=== PATIENT | female | born 1995 | race Hispanic/Latino ===

== ENCOUNTER 2019-10-24 18:42 | Emergency (ER) | payer OTHER, BC ==
[~2019-10-24] VITALS: Ht 165.1 cm; Wt 93.9 kg
[2019-10-24] MEDS ORDERED: AUGMENTIN 875-1 EACH PO (21:22)
== END 2019-10-24 21:33 | disposition home or self-care (01) ==
LOC: ED 18:42
DX: J32.9 Chronic sinusitis, unspecified (principal)
CPT/HCPCS: 70450; 80053; 85025; 96374; 96375; 99284-25; J1200; J1885; J2765; J7030

== ENCOUNTER 2020-08-02 00:10 | Inpatient (IN) | payer BC, OTHER ==
[~2020-08-02 00:10] MED LIST: AUGMENTIN 875-1 EACH PO
[2020-08-02] MEDS ORDERED: VITAFOL-OB+DHA1 EACH PO (01:01)
--- NOTE | 2020-08-02 01:17 | NUR ---
[facility] RAPID COVID TEST DONE PER DR ORDER. COVID TEST COLLECTED FROM BOTH NARES W\O ISSUE. PT TOLERATED WELL.
== END 2020-08-03 12:43 | disposition home or self-care (01) | DRG 807 ==
LOC: FBC 00:10
PROVIDERS: ADMIT Obstetrics & Gynecology; ATTEND Obstetrics & Gynecology
PROC: 10E0XZZ Delivery of Products of Conception, External Approach (ICD-10-PCS; principal; 2020-08-02)
PROC: 10907ZC Drainage of Amniotic Fluid, Therapeutic from Products of Conception, Via Natural or Artificial Opening (ICD-10-PCS; 2020-08-02)
PROC: 3E0P7VZ Introduction of Hormone into Female Reproductive, Via Natural or Artificial Opening (ICD-10-PCS; 2020-08-02)
PROC: 00HU33Z Insertion of Infusion Device into Spinal Canal, Percutaneous Approach (ICD-10-PCS; 2020-08-02)
PROC: 3E0R3BZ Introduction of Anesthetic Agent into Spinal Canal, Percutaneous Approach (ICD-10-PCS; 2020-08-02)
DX: O48.0 Post-term pregnancy (principal); Z37.0 Single live birth; Z3A.40 40 weeks gestation of pregnancy; Z20.822 Contact with and (suspected) exposure to COVID-19; O76 Abnormality in fetal heart rate and rhythm complicating labor and delivery; O99.824 Streptococcus B carrier state complicating childbirth; O99.02 Anemia complicating childbirth; D64.9 Anemia, unspecified
CPT/HCPCS: 36415; 85027; C9803; J2540; J2590; J2795; J3010; J7121; U0003

== ENCOUNTER 2020-11-11 06:00 | Day surgery (SDC) | payer BC, OTHER ==
[~2020-11-11] VITALS: Ht 165.1 cm; Wt 101.0 kg
[~2020-11-11 06:00] MED LIST changes: +VITAFOL-OB+DHA1 EACH PO
--- NOTE | 2020-11-11 09:31 | NUR ---
11/11/20 0931 Ruthann Gonzalez 0917 PT ARRIVED TO PACU ON RA, O2 SAT 88% 2L NC PLANCED AND O2 INCREASED TO 94%. RESP EVEN AND UNLABORED, PT STARTING TO MOVE AROUND IN BED AND SHAKING, WARM AIRWAY PLACED. VSS.
--- NOTE | 2020-11-16 03:44 | OR ---
[facility] [address], [place] [address] Signed DATE OF OPERATION: 11/11/2020 SURGEON: Robi Sow DO PROCEDURE: Excision of vaginal cyst. MOLD RELEASE WORKER: None. ESTIMATED BLOOD LOSS: 5 mL. ANESTHESIA: Monitored anesthesia care. FINDINGS: A 2 cm serous appearing vaginal cyst from 10 o'clock position, 1 cm vaginal cyst just proximal to 2 cm cyst with smaller but otherwise identical appearance, and similar 2 cm cyst in the 2 o'clock position well localized without extension. DESCRIPTION OF PROCEDURE: The patient was taken to the operating room, where she was placed under monitored anesthesia care in dorsal lithotomy position and prepped and draped in the normal sterile fashion. Weighted speculum was placed in the vagina allowing excellent visualization of the first most distal cyst. A 3 mm incision was made with scalpel and extended with Welch scissors. The cyst was excised through blunt and sharp dissection using Metzenbaum scissors and excised in one intact cyst and sent to Pathology. A second much smaller cyst was noted just deep to same opening and in the same manner that was bluntly and sharply dissected using Metzenbaum scissors. Just prior to complete excision, the cyst wall ruptured, spilling a small amount of clear serous fluid. Cyst wall was sent with the initial cyst for Pathology. The incision was closed with 3-0 chromic in a running fashion. Attention was then turned to the deeper cyst in the 2 o'clock position. In a similar manner, incision was made with a scalpel and the cyst wall was dissected out bluntly and sharply with Metzenbaum scissors. [place] through the dissection, cyst wall ruptured, spilling similar clear serous contents. Remainder of the cyst wall was excised and incision was closed with Electronically Signed By: ROBI SOW DO 11/16/20 0344 PATIENT NAME: ASHLEY WHITTAKERINA OPERATIVE REPORT DATE OF : [birth year] REPORT #: [id number] PHYSICIAN: ROBI SOW DO PCP: NO PRIMARY CARE PHYSICIAN REPORT IS CONFIDENTIAL AND NOT TO BE RELEASED WITHOUT AUTHORIZATION [facility] [address] [place] [id number] Signed 3-0 chromic in a running fashion. Blood loss was minimal. Excellent hemostasis was noted. Following closure, the patient was taken to recovery room in stable and satisfactory condition. Robi Sow DO EMZ/MODL /[id number] Copies: ~ Electronically Signed By: ROBI SOW DO 11/16/20 0344 PATIENT NAME: CARLEEN WHITTAKER OPERATIVE REPORT DATE OF : [birth year] REPORT #: [id number] PHYSICIAN: ROBI SOW DO PCP: NO PRIMARY CARE PHYSICIAN REPORT IS CONFIDENTIAL AND NOT TO BE RELEASED WITHOUT AUTHORIZATION
--- NOTE | 2020-11-19 09:23 | PATH ---
[facility] [address] [facility] [place], [place] [address] Signed SPECIMEN(S): A VAGINAL CYSTS X3 SPECIMEN SOURCE: A. VAGINAL CYSTS X3 CLINICAL HISTORY: Vaginal cysts / mass FINAL PATHOLOGIC DIAGNOSIS: Vaginal cysts x 3: - Benign cyst lined by low cuboidal epithelium. - See Comment. COMMENT: Features most consistent with a Bartholin's cyst are present. TWK:everardo:[email or web address] MICROSCOPIC EXAMINATION: Histologic sections of all submitted blocks are examined by light microscopy. These findings, together with the gross examination, support the pathologic diagnosis. GROSS DESCRIPTION: The specimen, labeled "CG," and designated on the requisition "vaginal cyst 3," is received in formalin and consists of three ritchie-pink membranous tissue fragments, including one intact serous cyst, measuring 2.9 x 2.0 x 1.5 cm in aggregate. The Intact cyst contains clear fluid and business center representative sections are submitted in cassette A1. AT (under the direct supervision of a pathologist) The Gross Description was prepared using a voice recognition system. The report was reviewed for accuracy; however, sound-alike word errors, addition and/or deletions may occur. If there is any question about this report, please contact Client Services. PERFORMING LABORATORY: The technical component was performed by [facility], [address] [place] [id number] (Language Therapist: Chey Emery MD; CLIA# [id number]). The professional interpretation was performed by [facility], [facility], [address] [place] [address]. PATIENT NAME: CARLEEN WHITTAKER PATHOLOGY DATE OF : [birth year] REPORT #: [id number] PHYSICIAN: TAB PATHOLOGY PCP: NO PRIMARY CARE PHYSICIAN REPORT IS CONFIDENTIAL AND NOT TO BE RELEASED WITHOUT AUTHORIZATION [address] [place], [place] [address] Signed Diagnostician: Wilver Granados MD Pathologist Electronically Signed 11/19/2020 Copies: ~ PATIENT NAME: CARLEEN WHITTAKER PATHOLOGY DATE OF : [birth year] REPORT #: [id number] PHYSICIAN: TAB PATHOLOGY PCP: NO PRIMARY CARE PHYSICIAN REPORT IS CONFIDENTIAL AND NOT TO BE RELEASED WITHOUT AUTHORIZATION
== END 2020-11-11 10:25 | disposition home or self-care (01) ==
LOC: DS 06:00 → OPS 06:00 → DS 09:00 → OPS 09:00
PROVIDERS: ATTEND Obstetrics & Gynecology
PROC: 0UBG7ZZ Excision of Vagina, Via Natural or Artificial Opening (ICD-10-PCS; principal; 2020-11-11 06:45)
DX: N89.8 Other specified noninflammatory disorders of vagina (principal); Z30.431 Encounter for routine checking of intrauterine contraceptive device
CPT/HCPCS: 00948; J1885; J2001; J2250; J2405; J2704; J7121

== ENCOUNTER 2023-10-08 10:53 | Inpatient (IN) | payer BC, OTHER ==
[2023-10-08] MEDS ORDERED: PENICILLIN G POTASSIUM 5 MUNITS/110 ML PIGGYBACK ONE (11:22)
[2023-10-08 11:38] LABS: HEMATOCRIT 36.1 % (35.0-50.0); HEMOGLOBIN 11.9 g/dL (12.0-18.0); MCH 27.6 (27-36); MCHC 33.1 g/dl (30-36); MCV 83.3 fl (81-99); RBC 4.33 M/ul (4.3-5.7); RDW 15.3 (10.5-15.0)
[2023-10-08] MEDS ORDERED: OXYTOCIN/DEXTROSE 5% 20 UNITS/100 ML BAG IV SCH (11:45)
[2023-10-08] MEDS ORDERED: LACTATED RINGER'S 1,000 ML IV PRN (11:45)
[2023-10-08] MEDS ORDERED: MAGNESIUM HYDROXIDE/AL HYDROX 30 ML CUP PO PRN ×2 (11:45→14:45)
[2023-10-08] MEDS ORDERED: CALCIUM CARBONATE 500 MG CHEW PO PRN ×2 (11:45→14:45)
[2023-10-08] MEDS ORDERED: ROPIVACAINE 0.2% 200 ML BAG ONE (11:45)
[2023-10-08] MEDS ORDERED: fentaNYL citrate 100 MCG/2 ML VIAL ONE (11:45)
[2023-10-08] MEDS ORDERED: LACTATED RINGER'S 2,000 ML IV ONE (11:45)
[2023-10-08] MEDS ORDERED: PENICILLIN G POTASSIUM 5 MUNITS/110 ML PIGGYBACK IV ONE (11:45)
[2023-10-08] MEDS ORDERED: ePHEDrine sulfate 5 MG/ML SYRINGE IV PRN (11:45)
[2023-10-08] MEDS ORDERED: ROPIVACAINE 0.2% 200 ML BAG EPIDURAL SCH (11:45)
[2023-10-08] MEDS ORDERED: LACTATED RINGER'S 500 ML IV PRN (11:45)
[2023-10-08 12:18] LABS: ABO B; RH POSITIVE
[2023-10-08 12:19] LABS: ANTIBODY SCREEN NEGATIVE
[2023-10-08] MEDS ORDERED: OXYTOCIN/0.9 % SODIUM CHLORIDE 500 ML IV ONE (12:45)
[2023-10-08 12:55] LABS: AMPHETAMINES, URINE NEGATIVE (NEGATIVE); BARBITURATES, URINE NEGATIVE (NEGATIVE); BENZODIAZEPINE, URINE NEGATIVE (NEGATIVE); BUPRENORPHINE, URINE NEGATIVE (NEGATIVE); CANNABINOID, URINE NEGATIVE (NEGATIVE); COCAINE, URINE NEGATIVE (NEGATIVE); ECSTASY, URINE NEGATIVE (NEGATIVE); FENTANYL, URINE NEGATIVE (NEGATIVE); METHADONE, URINE NEGATIVE (NEGATIVE); OPIATES, URINE NEGATIVE (NEGATIVE); OXYCODONE, URINE NEGATIVE (NEGATIVE); PHENCYCLIDINE, URINE NEGATIVE (NEGATIVE)
[2023-10-08] MEDS ORDERED: ACETAMINOPHEN 325 MG TAB PO PRN (14:45)
[2023-10-08] MEDS ORDERED: LIDOCAINE 2% VISCOUS 6 ML SYR TOP ONE ×2 (14:45)
[2023-10-08] MEDS ORDERED: OXYTOCIN/0.9 % SODIUM CHLORIDE 500 ML IV SCH (14:45)
[2023-10-08] MEDS ORDERED: WITCH HAZEL/GLYCERIN 1 EA PAD TOP PRN (14:45)
[2023-10-08] MEDS ORDERED: IBUPROFEN 600 MG TAB PO PRN (14:45)
[2023-10-08] MEDS ORDERED: MAGNESIUM HYDROXIDE 30 ML UDC PO PRN (14:45)
[2023-10-08] MEDS ORDERED: HYDROCORTISONE ACETATE 25 MG SUPP PR PRN (14:45)
[2023-10-08] MEDS ORDERED: BENZOCAINE 60 ML AEROSOL TOP PRN (14:45)
[2023-10-08] MEDS ORDERED: PENICILLIN G POTASSIUM 2.5 MUNITS in DEXTROSE 5% 100 ML IV SCH (16:00)
[2023-10-08] MEDS ORDERED: SENNOSIDES/DOCUSATE 1 EA TAB PO SCH (21:00)
[2023-10-09 05:55] LABS: HEMATOCRIT 34.2 % (35.0-50.0); HEMOGLOBIN 11.2 g/dL (12.0-18.0); MCH 27.7 (27-36); MCHC 32.8 g/dl (30-36); MCV 84.5 fl (81-99); RBC 4.04 M/ul (4.3-5.7); RDW 15.7 (10.5-15.0)
--- NOTE | 2023-10-10 12:27 | PR ---
[facility] [address] [facility] [place], [place] [address] Signed PP Progress Notes Datetime Report Generated by CPN: 10/10/2023 12:27 SUBJECTIVE: [id number] Pain: Within Normal Limits Nausea/Vomiting: Denies Flatus: Yes Bowel Movement: No Vital Signs: [id number] Vital Signs: Reviewed; Within Normal Limits Cardiovascular: Normal Respiratory: Normal Abdomen/Uterus: Normal Lochia: Normal Vulva/Perineum: Not Done Breasts: Not Done CVA Tenderness: Normal Extremities: Normal Incision: Not Applicable Progress: Normal Exam Comments: Fundus firm U-2 nontender IMPRESSION/PLAN/PROCEDURES: [id number] Impression: Normal Progression Plan: Discharge Progress Notes: Pt seen and examined. Doing well. Ambulating, voiding, and tolerating full diet. Pain and lochia minimal. . No concerns. Desires d/c home today. Planning pp bilateral salpingectomy. Reviewed d/c instructions / medications. F/U 2 wks for pp visit. Signing Physician: Jina Mcneill DO Copies: ~ *Electronically Signed* 10/10/23 6235 JINA MCNEILL (MARILY) DO PATIENT NAME: CARLEEN WHITTAKER PROGRESS NOTE DATE OF : [birth year] PHYSICIAN: JINA MCNEILL) DO RPT #: [id number] REPORT IS CONFIDENTIAL AND NOT TO BE RELEASED WITHOUT AUTHORIZATION
== END 2023-10-10 13:00 | disposition home or self-care (01) | DRG 807 ==
LOC: FBCO 10:53 → FBC 11:20
PROVIDERS: ADMIT Obstetrics & Gynecology; ATTEND Obstetrics & Gynecology
PROC: 10E0XZZ Delivery of Products of Conception, External Approach (ICD-10-PCS; principal; 2023-10-08)
PROC: 3E0R3BZ Introduction of Anesthetic Agent into Spinal Canal, Percutaneous Approach (ICD-10-PCS; 2023-10-08)
PROC: 00HU33Z Insertion of Infusion Device into Spinal Canal, Percutaneous Approach (ICD-10-PCS; 2023-10-08)
DX: O99.824 Streptococcus B carrier state complicating childbirth (principal); Z37.0 Single live birth; Z3A.38 38 weeks gestation of pregnancy; O69.81X0 Labor and delivery complicated by cord around neck, without compression, not applicable or unspecified; O99.214 Obesity complicating childbirth
CPT/HCPCS: 01960; 36415; 80307; 85027; 86850; 86900; 86901; A9270; J2540; J2795; J3010; J7121

== ENCOUNTER 2023-12-26 09:05 | Day surgery (SDC) | payer BC, OTHER ==
[2023-12-19 09:22] VITALS: BP 124/71
[~2023-12-26] VITALS: Ht 165.1 cm; Wt 104.5 kg
[~2023-12-26 09:05] MED LIST changes: +IBLOOD GLUCOSE TEST STRIP 1 EA TEST VI PRN; +LACTATED RINGER'S 1,000 ML IV SCH; +LIDOCAINE HCL 1% 5 ML SDV INJ ONE
[2023-12-26 09:20] VITALS: BP 122/73
[2023-12-26] MEDS ORDERED: ROCURONIUM BROMIDE 50 MG/5 ML SYR ONE (10:15)
[2023-12-26] MEDS ORDERED: KETAMINE in NS 50 MG/5 ML SYR ONE (10:15)
[2023-12-26] MEDS ORDERED: LIDOCAINE HCL 2% 5 ML SDV ONE (10:15)
[2023-12-26] MEDS ORDERED: fentaNYL citrate 100 MCG/2 ML VIAL ONE (10:15)
[2023-12-26] MEDS ORDERED: ACETAMINOPHEN 1,000 MG/100 ML VIAL ONE (10:15)
[2023-12-26] MEDS ORDERED: ondansetron HCL 4 MG/2 ML VIAL ONE (10:16)
[2023-12-26] MEDS ORDERED: DEXAMETHASONE SOD PHOS 4 MG/ML VIAL ONE (10:16)
[2023-12-26] MEDS ORDERED: KETOROLAC TROMETHAMINE 30 MG/ML VIAL ONE (10:16)
[2023-12-26] MEDS ORDERED: propofoL 200 MG/20 ML VIAL ONE (10:19)
[2023-12-26] MEDS ORDERED: HEParin SOD (PORCINE) 5,000 UNIT/0.5 ML SYR ONE (10:26)
[2023-12-26] MEDS ORDERED: fentaNYL citrate 50 MCG/ML SDV IV PRN (10:30)
[2023-12-26] MEDS ORDERED: NALOXONE HCL 0.4 MG SYR IV PRN ×2 (10:30→12:00)
[2023-12-26] MEDS ORDERED: HEParin SOD (PORCINE) 5,000 UNIT/ML SDV SUB-Q ONE (10:30)
[2023-12-26] MEDS ORDERED: PROCHLORPERAZINE EDISYLATE 10 MG/2 ML VIAL IV PRN ×2 (10:30→12:00)
[2023-12-26] MEDS ORDERED: IBLOOD GLUCOSE TEST STRIP 1 EA TEST VI PRN (10:30)
[2023-12-26] MEDS ORDERED: ondansetron HCL 4 MG/2 ML VIAL IV PRN ×2 (10:30→12:00)
[2023-12-26] MEDS ORDERED: HYDROmorphone HCL 1 MG/ML SYR IV PRN (10:30)
[2023-12-26] MEDS ORDERED: SUGAMMADEX SODIUM 200 MG/2 ML ML ONE (11:17)
[2023-12-26 12:00] VITALS: BP 111/65
[2023-12-26] MEDS ORDERED: OXYCODONE/APAP 5/325 TAB PO PRN (12:00)
[2023-12-26] MEDS ORDERED: MAGNESIUM HYDROXIDE/AL HYDROX 30 ML CUP PO PRN (12:00)
[2023-12-26] MEDS ORDERED: FAMOTIDINE 20 MG/ 2 ML VIAL IV PRN (12:00)
[2023-12-26] MEDS ORDERED: SIMETHICONE 125 MG TABLET CHEWABLE PO PRN (12:00)
[2023-12-26] MEDS ORDERED: MORPHINE SULFATE 10 MG/ML VIAL IV PRN (12:00)
--- NOTE | 2023-12-26 12:18 | NUR ---
1200: PATIENT BACK IN DAY SURGERY ROOM FROM PACU. DENIES PAIN AT THIS TIME. TEARFUL, BUT STATES NOT RELATED TO PAIN. VS CHECKED. IV SITE WNL. ABDOMEN X 3 SITES WITH BANDAIDS, ALL CLEAN, DRY AND INTACT. PERIPAD IN PLACE. SCDs ON. GIVEN ICE WATER. CALL LIGHT WITHIN REACH.
--- NOTE | 2023-12-26 12:25 | NUR ---
CHECKED PATIENT. PATIENT STATES DOING WELL. TOLERATING WATER. GIVEN JELLO TO EAT. AT BEDSIDE. CALL LIGHT WITHIN REACH.
[2023-12-26] MEDS ORDERED: IBUPROFEN800 MG PO (12:32)
[2023-12-26] MEDS ORDERED: HYDROCODON-ACE1 EA10 PO (12:32)
--- NOTE | 2023-12-26 12:54 | NUR ---
12/26/23 1254 Ruthann Gonzalez 1135 PT ARRIVED TO PACU ASLEEP AND EASILY WAKES TO VERBAL STIMULI. PT DENIES PAIN AND NAUSEA. PT IS TEARFUL AND RN CONTINUES TO REASSURE PT. 1150 PT RESTING IN BED AND REPORTS TOLERABLE AMOUNT OF PAIN 3-4/10. PLAN OF CARE DISCUSSED. 1155 PT RETURNED TO ROOM IN DS AND VSS. REPORT GIVEN AND ALL QUESTIONS ANSWERED.
[2023-12-26 13:00] VITALS: BP 120/74
--- NOTE | 2023-12-26 13:34 | NUR ---
1300: PATIENT AWAKENED. VS CHECKED. DENIES PAIN. IV SITE WNL. IV SALINE LOCKED. ABDOMINAL SITES X 3 CLEAN, DRY AND INTACT. ASSISTED PATIENT OOB. PATIENT DRESSED INDEPENDENTLY. 1310: STAND BY ASSIST WHILE PATIENT WALKED TO BATHROOM. GAIT STEADY TO AND FROM BATHROOM. VOIDED APPROXIMATELY 100 ML. 1321: DISCHARGE INSTRUCTIONS GIVEN TO PATIENT. IV DC'D WNL. TIP INTACT. DRESSING APPLIED. 1324: PATIENT DISCHARGED TO HOME VIA WHEELCHAIR WITH .
== END 2023-12-26 13:24 | disposition home or self-care (01) ==
LOC: DS 09:05 → OPS 09:05 → DS 10:45 → OPS 10:45
PROVIDERS: ATTEND Obstetrics & Gynecology
PROC: 0UB74ZZ Excision of Bilateral Fallopian Tubes, Percutaneous Endoscopic Approach (ICD-10-PCS; principal; 2023-12-26 11:40)
DX: Z40.03 Encounter for prophylactic removal of fallopian tube(s) (principal); Z39.2 Encounter for routine postpartum follow-up
CPT/HCPCS: 00840; J0131; J1100; J1644; J1885; J2001; J2405; J2704; J3010; J3490; J7121